=== PATIENT | male | born 2000 | race American Indian/Alaskan Native ===

== ENCOUNTER 2020-06-27 09:09 | Emergency (ER) | payer SELFPAY ==
[2020-06-27 09:40] VITALS: BP 111/62
--- NOTE | 2020-06-27 11:38 | Emergency Department Report ---
Chief Complaint: Medical Clearance Stated Complaint: COUGH/SNEEZING/N/V Time Seen by Provider: 06/27/20 11:29 - HPI History of Present Illness: Patient is a 19-year-old healthy looking male who presents to the ED department complaining of sneezing and coughing x1 week that is now resolved. Patient states that he presents here to be tested for COVID. Patient states his only symptoms have been coughing up mucus. Patient does note that he has been in and out of work during the rain with no physical contact with any person or sick contact. - ROS Review of Systems: As noted in HPI - Exam Vital Signs: Vital Signs 06/27/20 09:38 Temperature 99.5 F Pulse Rate 101 H Respiratory 17 Rate Blood Pressure 111/62 O2 Sat by Pulse 96 Oximetry Physical Exam: GENERAL: Alert and oriented x3, no apparent distress, Normal Gait, atraumatic. HEAD: Head is normocephalic and a-traumatic. EYES: Pupils are equal, round, and reactive to light and accommodation. EARS: symetrical, atraumatic, non tender, ear canal clear and moderate cerumen, tympanic membrance non inflamed. gross auditory nml bilaterally. NOSE: Nose symetrical, Nontender,Nares appeared normal. MOUTH:Mouth is well hydrated and without lesions. Tonsils nonerythematous or swollen, Uvula midline, Tongue not elevated. Mucous membranes are moist. Posterior pharynx clear, no exudate or lesions. Patent airways. NECK: Supple. Non edematous, No carotid bruits. No lymphadenopathy or thyromegaly. No C-spine tenderness LUNGS: Symetrical with respiration, No wheezing, no rales or crackles, CTAB. HEART: S1, S2 present, regular rate and rhythm without murmur, no rubs, no gallops. Non tender to palpation SKIN: Warm and dry, No lesions, No ulceration or induration present. MSE screening note: Focused history and physical exam performed. Due to findings the following was ordered: ED Medical Decision Making - Medical Decision Making 19-year-old male presents with sneezing and coughing no fever at home or during the ED stay. Discussed with patient symptomatic relief with [id number] medications. Discussed with patient COVID-19 testing is appropriate and should be done as soon as possible. Discussed with patient for 14-day quarantine if test is positive. Discussed worsening of symptoms patient should return to ED immediately. Call with testing centers given to patient. Discussed continue Tylenol as needed for fever and pain. Discussed increase fluids and diet intake. Discussed rest much needed. Discussed daily vitamin C for immune booster. Discussed follow-up with primary care physician in 3-5 days. Patient verbally states she understands and will comply the following instructions and follow-up Vital signs stable. Patient is in no acute or respiratory distress ED Disposition for MSE Clinical Impression: Viral syndrome Disposition: DC- TO HOME OR SELFCARE Is pt being admited?: No Does the pt Need Aspirin: No Condition: Stable Instructions: COVID-19 Additional Instructions: Make sure to follow up with the primary care physician as discussed. Follow-up with the resources you are given to get tested for COVID. You may take [id number] medicines like Mucinex, Robitussin, Claritin for your symptoms If you have any worsening symptoms or develop new symptoms please return to ED immediately. Referrals: [facility] [Outside] - 3-5 Days [facility] [Outside] - 3-5 Days Forms: Work/School Release Form(ED) Time of Disposition: 11:39
== END 2020-06-27 11:55 | disposition home or self-care (01) ==
LOC: ED 09:09
DX: B34.9 Viral infection, unspecified (principal); R05 Cough; R06.7 Sneezing
CPT/HCPCS: 99282